=== PATIENT | female | born 1990 | race Caucasian/White ===

== ENCOUNTER 2017-07-15 19:09 | Emergency (ER) | payer SELFPAY ==
--- NOTE | 2017-07-15 19:27 | Emergency Department Record ---
History of Present Illness - General Chief Complaint: Ankle/Foot Injury Stated Complaint: LT ANKLE PAIN Time Seen by Provider: 07/15/17 19:20 Source: Patient Mode of Arrival: Ambulatory Limitations: No limitations - History of Present Illness Initial Comments: The patient has had L ankle pain for 4 days. The pain is over the medial L ankle joint. There is no known injury, trauma, or fall. The patient is able to walk on it with only mild discomfort but no limping. MD Complaint: Other Onset/Timin -: Days(s) Type of Injury: Unknown Place: Home Severity: Mild Improves With: Cold therapy, NSAID, Rest Worsens With: Weight bearing Context: Other Associated Symptoms: Ambulatory Treatments Prior to Arrival: NSAIDS - Related Data Home Medications Medication Instructions Recorded Confirmed Last Taken Norgestimate-Ethinyl Estradiol 1 tab PO DAILY 07/15/17 07/15/17 07/15/17 [Sprintec 28 Day Tablet] Allergies Allergy/AdvReac Type Severity Reaction Status Date / Time No Known Drug Allergies Allergy Verified 07/15/17 19:17 Travel Screening - Travel/Exposure Within Last 30 Days Have you traveled within the last 30 days?: No - Travel/Exposure Within Last Year Have you traveled outside the [place] in the last year?: No - Additonal Travel Details Have you been exposed to anyone with a communicable illness?: No - Travel Symptoms Symptom Screening: None Review of Systems Constitutional: Denies: Chills, Fever Past Medical History - SOCIAL HISTORY Smoking Status: Never smoker Alcohol Use: Rare Drug Use: None - RESPIRATORY Hx Respiratory Disorders: No - CARDIOVASCULAR Hx Cardio Disorders: No - NEURO Hx Neuro Disorders: No - GI Hx GI Disorders: No - Hx Genitourinary Disorders: No - ENDOCRINE Hx Endocrine Disorders: No - MUSCULOSKELETAL Hx Musculoskeletal Disorders: No - PSYCH Hx Psych Problems: No - HEMATOLOGY/ONCOLOGY Hx Hematology/Oncology Disorders: No Family Medical History Any Significant Family History?: No Physical Exam - General General Appearance: Alert, Cooperative, No acute distress - Head Head exam: Atraumatic, Normocephalic - Eye Eye exam: Normal appearance, PERRL - Extremities Extremities exam: Normal inspection (There is no swelling, bruising, or edema.) , Full ROM, Normal capillary refill, Tenderness (There is mild L ankle medial joint line tenderness.), Other (The L foot is nontender and NVI with normal pulses.). negative: Joint swelling - Neurological Neurological exam: Alert, Normal gait. negative: Abnormal gait, Motor sensory deficit Course Vital Signs 07/15/17 19:18 Temperature 98.7 F Pulse Rate [ 71 Pulse Ox Probe] Respiratory 18 Rate Blood Pressure 132/83 [Left Arm] Pulse Ox 100 - Reevaluation(s) Reevaluation #1: I did explain to the patient the xrays appear WNL's. She is to ice and elevate the ankle when possible and take Motrin or Advil for pain. She is to see her PCP next week if not better. 07/15/17 20:01 Medical Decision Making - Data Complexity MDM Data: X-Ray Ordered and/or Reviewed - Radiology Data Radiology results: Report reviewed (L ankle: Neg for fx or dislocation.) Disposition Disposition: Discharge Clinical Impression: Ankle pain, left Qualifiers: Chronicity: acute Qualified Code(s): M25.572 - Pain in left ankle and joints of left foot Disposition: Home, Self-Care Condition: (2) Stable Instructions: Ankle Sprain (ED) Additional Instructions: Please ice and elevate the ankle when possible. Take Motrin or Advil for pain. Please see your family doctor for recheck next week if not better. Return to the ER for any worsening symptoms, pain or swelling. Forms: Patient Portal Access Time of Disposition: 20:02 Quality - Quality Measures Quality Measures: N/A - Blood Pressure Screening View Details: Yes Does Patient Have Any of the Following: No Blood Pressure Classification: Pre-Hypertensive BP Reading Systolic Measurement: 132 Diastolic Measurement: 83 Screening for High Blood Pressure: < Pre-Hypertensive BP, F/U Documented > [ [id number]] Pre-Hypertensive Follow-up Interventions: Referral to alternative/primary care provider.
--- NOTE | 2017-07-16 14:53 | RADIOLOGY REPORT ---
EXAM: LEFT ANKLE HISTORY: INJURY. TECHNIQUE: Three views of the left ankle were performed. FINDINGS: No evidence of fracture or dislocation. No lytic or blastic lesion. IMPRESSION: NEGATIVE LEFT ANKLE EXAMINATION. JOB NUMBER: [id number] MTDD
== END 2017-07-15 20:08 | disposition home or self-care (01) ==
LOC: ER 19:09
DX: M25.572 Pain in left ankle and joints of left foot (principal)
CPT/HCPCS: 99283